=== PATIENT | female | born 1955 | race African-American/Black ===

== ENCOUNTER 2021-11-28 17:35 | Emergency (ER) | payer MEDICARE, OTHER ==
[~2021-11-28] VITALS: Ht 162.6 cm; Wt 80.0 kg
[2021-11-28 22:01] VITALS: BP 160/82
== END 2021-11-28 22:02 | disposition home or self-care (01) ==
LOC: ER 17:35
DX: S09.8XXA Other specified injuries of head, initial encounter (principal); K21.9 Gastro-esophageal reflux disease without esophagitis; W22.8XXA Striking against or struck by other objects, initial encounter; Y93.89 Activity, other specified; Y92.9 Unspecified place or not applicable
CPT/HCPCS: 99284

== ENCOUNTER 2023-09-21 13:55 | Emergency (ER) | payer MEDICARE, OTHER ==
[~2023-09-21] VITALS: Ht 172.7 cm; Wt 77.0 kg
[2023-09-21 14:04] VITALS: O2SAT 99
[2023-09-21 14:51] VITALS: TEMP 98.1
[2023-09-21 15:17] LABS: HEMATOCRIT. 40.3 % (36.0-48.0); HEMOGLOBIN. 13.2 g/dL (12.0-16.0); MEAN CORPUSCULAR HEMOGLOBIN 30.4 pg (28.0-32.0); MEAN CORPUSCULAR HGB CONC 32.9 g/dL (31.0-37.0); MEAN CORPUSCULAR VOLUME 92.6 fL (81.0-99.0); RED BLOOD CELL COUNT 4.35 mill/uL (4.2-5.4); RED CELL DISTRIBUTION WIDTH 14.3 % (11.6-14.6)
[2023-09-21 15:20] LABS: DIFFERENTIAL COMMENT 1
[2023-09-21 15:22] LABS: ALANINE AMINOTRANSFERASE 100 IU/L (10-49); ALBUMIN 4.1 g/dL (3.2-4.8); ASPARTATE AMINOTRANSFERASE 128 IU/L (<34); BILIRUBIN TOTAL 4.8 mg/dL (0.1-1.0); CALCIUM 9.2 mg/dL (8.7-10.4); CARBON DIOXIDE 28 mEq/L (21-32); CHLORIDE 105 mEq/L (98-107); CREATININE 0.8 mg/dL (0.6-1.0); GLUCOSE 135 mg/dL (70-105); POTASSIUM 4.2 mEq/L (3.5-5.1); PROTEIN TOTAL 8.5 g/dL (6.0-8.3); SODIUM 138 mEq/L (136-145); UREA NITROGEN BLOOD 9 mg/dL (9-23)
[2023-09-21 15:23] LABS: TROPONIN I HIGH SENSITIVITY < 4 ng/L (3.0-34)
[2023-09-21 15:27] LABS: PROTHROMBIN TIME 11.4 sec (9.6-11.0)
[2023-09-21 15:35] LABS: MEAN PLATELET VOLUME 12.4 fl (7.4-10.4); PLATELET 229 x1000/uL (130-400)
[2023-09-21 15:36] LABS: GIANT PLATELETS 2+; PLATELET ESTIMATE NORMAL
[2023-09-21 18:29] LABS: TROPONIN I HIGH SENSITIVITY < 4 ng/L (3.0-34)
[2023-09-21] MEDS: SODIUM CHLORIDE 0.9% 1000ML BAG (SEPSIS BOLUS) IV ONE (18:44)
[2023-09-21] MEDS: CEFTRIAXONE 1GM/50ML 50 ML IV NR (18:44)
[2023-09-21 21:26] LABS: CLARITY URINE CLEAR (CLEAR); COLOR URINE DARK YELLOW (YELLOW); GLUCOSE URINE NEGATIVE (NEGATIVE); KETONES URINE TRACE (NEGATIVE); LEUKOCYTE ESTERASE URINE TRACE (NEGATIVE); NITRITE URINE NEGATIVE (NEGATIVE); OCCULT BLOOD URINE NEGATIVE (NEGATIVE); PH URINE 7.5 (4.5-8.0); PROTEIN URINE TRACE (NEGATIVE); SPECIFIC GRAVITY URINE 1.021 (1.005-1.030)
[2023-09-21 21:40] LABS: BACTERIA URINE 2+; RBC URINE 0-2 /hpf (0-2); SQUAMOUS EPITHELIAL CELL URINE 1+ /lpf (RARE/1+); WBC URINE 0-2 /hpf (0-2)
[2023-09-21 23:14] VITALS: BP 131/64; PULSE 72; RESP 16
== END 2023-09-22 | disposition left against medical advice (07) ==
LOC: ER 13:55 → CANBEDREQ 09-23 22:53
DX: R10.84 Generalized abdominal pain (principal)
CPT/HCPCS: 99291; 96365; 70450; 76705; 80053; 81003; 83605; 83690; 85025; 85610; 87040; 87086; 84484; 84145; 71045; 93005; 36415; J0696